=== PATIENT | female | born 1995 | race Caucasian/White ===

== ENCOUNTER 2016-05-21 20:43 | Emergency (ER) | payer OTHER ==
[2016-05-21 20:50] VITALS: RESP 16; TEMP 98.2
[2016-05-21 21:23] LABS: % IMMATURE GRANULYOCYTES 0.3 % (0.0-1.1); ABSOLUTE IMMATURE GRANULOCYTES 0.02 10^3/uL (0.00-0.10); ADD DIFF? NO; ADD MORPH? NO; ADD SCAN? NO; ATYPICAL LYMPHOCYTE FLAG 20 (0-99); FRAGMENT RBC FLAG 0 (0-99); HEMATOCRIT 41.7 % (38.0-47.0); HEMOGLOBIN 14.1 g/dL (12.6-16.3); LEFT SHIFT FLG 0 (0-99); LIPEMIA HEMOLYSIS FLAG 90 (0-99); MEAN CELL HEMOGLOBIN 31.2 pg (27.9-34.1); MEAN CELL HEMOGLOBIN CONCENTR. 33.8 g/dL (32.4-36.7); MEAN CELL VOLUME 92.3 fL (81.5-99.8); MEAN PLATELET VOLUME 11.1 fL (8.7-11.7); PLATELET CLUMPS FLAG 0 (0-99); PLATELET COUNT 312 10^3/uL (150-400); RED BLOOD CELL COUNT 4.52 10^6/uL (4.18-5.33); RED CELL DISTRIBUTION WIDTH 11.5 % (11.5-15.2)
[2016-05-21] MEDS ORDERED: NS 1,000 ML IV ONE (21:38)
--- NOTE | 2016-05-21 21:38 | EDPHY ---
H & P Stated Complaint: LUQ/L flank pain - Personal History LMP (Females 10-55): IUD [address] Place Current Tetanus/Diphtheria Vaccine: Yes Current Tetanus Diphtheria and Acellular Pertussis (TDAP): Yes - Medical/Surgical History Hx Asthma: No Hx Chronic Respiratory Disease: No Hx Diabetes: No Hx Cardiac Disease: No Hx Renal Disease: No Hx Cirrhosis: No Hx Alcoholism: No Hx HIV/AIDS: No Hx Splenectomy or Spleen Trauma: No Other PMH: denies - Social History Smoking Status: Current some day smoker Time Seen by Provider: 05/21/16 21:14 HPI/ROS: CHIEF COMPLAINT: Left upper quadrant, left lower quadrant, left mid quadrant, left flank pain HISTORY OF PRESENT ILLNESS: 20-year-old female presents to the emergency department with reports of pain which began in the left mid quadrant several hours ago. Pain is described as a pressure like discomfort. Radiates around slightly to her back. On arrival to the emergency department patient noticed she is having pain also in the left lower quadrant suprapubic area. Denies any urinary complaints. No hematuria. Has felt like she has some constipation and drink prune juice earlier to try and relieve her discomfort. Had a similar episode of pain which self-resolved several weeks ago. No history of kidney stones. Denies fevers or chills. Denies chest pain. Has had a cold for several weeks but no cough or sputum production. No diarrhea. No headache. REVIEW OF SYSTEMS: Aside from elements discussed in the HPI, a comprehensive 10-point review of systems was reviewed and is negative. PAST MEDICAL HISTORY: Depression SOCIAL HISTORY: Nonsmoker. VITAL SIGNS Reviewed by me. GENERAL: Well-developed, well-nourished, resting comfortably in no respiratory distress. HEENT: Atraumatic. Eyes: No icterus, no injection. Mouth: moist mucous membranes. No erythema or lesions. Neck: supple with no adenopathy. LUNGS: Clear to auscultation bilaterally, no wheezes, rhonchi or rales. CARDIAC: Regular rate and rhythm, no rubs, murmurs or gallops. ABDOMEN: Soft, tenderness in the left mid quadrant, left lower quadrant, and suprapubic region. No guarding or rebound. BACK: Left CVA tenderness. EXTREMITIES: No trauma. No edema. Range of motion is normal throughout. NEURO: Alert and oriented, grossly nonfocal. SKIN: Warm and dry, no rash. PSYCHIATRIC: Normal mentation, no agitation. (Sisi Rojas) Constitutional: Initial Vital Signs Temperature (C) 36.8 C 05/21/16 20:47 Heart Rate 85 05/21/16 20:47 Respiratory Rate 16 05/21/16 20:47 Blood Pressure 135/50 H 05/21/16 20:47 O2 Sat (%) 100 05/21/16 20:47 O2 Delivery Mode Room Air Allergies/Adverse Reactions: No Known Allergies Allergy (Unverified 05/21/16 20:47) Home Medications: Medication Instructions Recorded Wellbutrin Sr 05/21/16 Medical Decision Making - Diagnostics Imaging: Imaging Impressions Abdomen/Pelvis CT 05/21/16 22:07 Impression: 1. Complex 11.6-cm cyst probably of left ovarian or paraovarian origin. With the large size and multiple septations, benign or malignant cystic neoplasm can be considered. 2. Constipation. No CT findings for appendicitis. No evidence for nephrolithiasis or hydronephrosis. Results called and discussed with Sisi Rojas M.D., on May 21, 2016 at 2239 hours. Attention: This CT examination is specifically designed to evaluate patients who are clinically suspected of having acute obstructive uropathy. This examination does not use radiographic contrast, and as such, provides only a limited evaluation of the abdomen, pelvis, and retroperitoneum. If there is further clinical suspicion for pathological conditions other than obstructive uropathy, a complete CT evaluation of the abdomen and pelvis utilizing intravenous, oral, and rectal contrast should be considered. Pelvic/Renal Ultrasound 05/21/16 22:45 Impression: Complex cystic mass in the left adnexal region measuring 11.4 cm with blood flow to the septations. This could represent a cystic ovarian neoplasm, benign or malignant. Results called and discussed with Dr. Damir Ren at 05/21/2016 23:47. ED Course/Re-evaluation: Urinalysis is negative for any acute signs of infection. She does have trace blood in her urine. Patient has a normal white count. She is not . CT scan was ordered to evaluate for intra-abdominal processes including kidney stone. CT scan was reported to me by the radiologist as demonstrating a large left ovarian cyst, quite complex, 11.6 cm. Results were explained to the patient. Ultrasound was ordered to further evaluate the cyst. Patient will need follow up with gynecology teacher. Patient's course was assumed by Dr. Ren at 11:15 p.m. pending ultrasound results. (Sisi Rojas) 1243AM: Patient's ultrasound results reveal 11 cm left ovarian cyst complex in nature no torsion good blood flow. Complex cyst. Will need up with OBGYN outpatient follow-up. Discussed the findings with the patient I gave her ultrasound report she understands follow-up with OBGYN call their make appointment be seen next week. She understands meanwhile she develops severe abdominal pain fever vomiting she needs to immediately return to the emergency room for risk of ovarian torsion given large left ovarian cyst. (Damir Ren ) Differential Diagnosis: After obtaining the patient's history and performing an examination, differential diagnosis considered included but was not limited to kidney stones , urinary tract infections, musculoskeletal causes, Ovarian cyst, pyelonephritis, shingles, and intra-abdominal causes such as diverticulitis and constipation. (Sisi Rojas) - Data Points Laboratory Results: Laboratory Results 05/21/16 21:15 05/21/16 21:15 05/21/16 05/21/16 05/21/16 21:15 21:15 21:15 WBC 7.27 10^3/uL 10^3/uL (3.80-9.50) RBC 4.52 10^6/uL 10^6/uL (4.18-5.33) Hgb 14.1 g/dL g/dL (12.6-16.3) Hct 41.7 % % (38.0-47.0) MCV 92.3 fL fL (81.5-99.8) MCH 31.2 pg pg (27.9-34.1) MCHC 33.8 g/dL g/dL (32.4-36.7) RDW 11.5 % % (11.5-15.2) Plt Count 312 10^3/uL 10^3/uL (150-400) MPV 11.1 fL fL (8.7-11.7) Neut % (Auto) 53.1 % % (39.3-74.2) Lymph % (Auto) 33.8 % % (15.0-45.0) [place] % (Auto) 9.9 % % (4.5-13.0) Eos % (Auto) 2.1 % % (0.6-7.6) Baso % (Auto) 0.8 % % (0.3-1.7) Nucleat RBC Rel Count 0.0 % % (0.0-0.2) Absolute Neuts (auto) 3.86 10^3/uL 10^3/uL (1.70-6.50) Absolute Lymphs (auto) 2.46 10^3/uL 10^3/uL (1.00-3.00) Absolute Monos (auto) 0.72 10^3/uL 10^3/uL (0.30-0.80) Absolute Eos (auto) 0.15 10^3/uL 10^3/uL (0.03-0.40) Absolute Basos (auto) 0.06 10^3/uL 10^3/uL (0.02-0.10) Absolute Nucleated RBC 0.00 10^3/uL 10^3/uL (0-0.01) Immature Gran % 0.3 % % (0.0-1.1) Immature Gran # 0.02 10^3/uL 10^3/uL (0.00-0.10) Sodium 136 mEq/L mEq/L (134-144) Potassium 4.7 mEq/L mEq/L (3.5-5.2) Chloride 105 mEq/L mEq/L (97-110) Carbon Dioxide 20 mEq/l L mEq/l (22-31) Anion Gap 11 mEq/L mEq/L (8-16) BUN 16 mg/dL mg/dL (7-23) Creatinine 0.7 mg/dL mg/dL (0.6-1.0) Estimated GFR > 60 Glucose 93 mg/dL mg/dL (70-100) Calcium 10.1 mg/dL mg/dL (8.5-10.4) Beta HCG, Qual NEGATIVE Urine Color Urine Appearance Urine pH Ur Specific [place] Urine Protein Urine Ketones Urine Blood Urine Nitrate Urine Bilirubin Urine Urobilinogen Ur Leukocyte Esterase Urine RBC Urine WBC Ur Epithelial Cells Urine Glucose 05/21/16 20:50 WBC RBC Hgb Hct MCV MCH MCHC RDW Plt Count MPV Neut % (Auto) Lymph % (Auto) [place] % (Auto) Eos % (Auto) Baso % (Auto) Nucleat RBC Rel Count Absolute Neuts (auto) Absolute Lymphs (auto) Absolute Monos (auto) Absolute Eos (auto) Absolute Basos (auto) Absolute Nucleated RBC Immature Gran % Immature Gran # Sodium Potassium Chloride Carbon Dioxide Anion Gap BUN Creatinine Estimated GFR Glucose Calcium Beta HCG, Qual Urine Color YELLOW Urine Appearance CLEAR Urine pH 6.0 (5.0-7.5) Ur Specific [place]elope 1.019 (1.002-1.030) Urine Protein NEGATIVE (NEGATIVE) Urine Ketones NEGATIVE (NEGATIVE) Urine Blood 1+ H (NEGATIVE) Urine Nitrate NEGATIVE (NEGATIVE) Urine Bilirubin NEGATIVE (NEGATIVE) Urine Urobilinogen NEGATIVE EU EU (0.2-1.0) Ur Leukocyte Esterase NEGATIVE (NEGATIVE) Urine RBC 1-3 /hpf /hpf (0-3) Urine WBC 1-3 /hpf /hpf (0-3) Ur Epithelial Cells TRACE /lpf /lpf (NONE-1+) Urine Glucose NEGATIVE (NEGATIVE) Medications Given: Discontinued Medications Sodium Chloride (Ns) 1,000 mls @ 0 mls/hr IV ONCE ONE PRN Reason: Wide Open Stop: 05/21/16 21:39 Last Admin: 05/21/16 21:42 Dose: 1,000 mls Ketorolac Tromethamine (Toradol) 30 mg IVP EDNOW ONE Stop: 05/21/16 22:07 Last Admin: 05/21/16 22:13 Dose: 30 mg Departure - Departure Disposition: Home, Routine, Self-Care Clinical Impression: Left ovarian cyst Abdominal pain Qualifiers: Abdominal location: left lower quadrant Qualified Code(s): R10.32 - Left lower quadrant pain Condition: Good Instructions: Hydrocodone/Acetaminophen (By mouth), Ovarian Cyst (ED) Additional Instructions: I recommend Ibuprofen (Motrin, Advil) or Naproxen Sodium (Aleve) for pain and anti-inflammatory effects. You may take either one, but do not take both. Your dose is: Ibuprofen 600 mg every 6-8 hours with food. OR Naproxen Sodium (Aleve) 220 mg every 12 hours. You may take [place] if needed for more severe pain. Please follow up with OBGYN as directed. Return to the emergency department or seek care urgently if he develops worsening pain, fevers, vomiting, vaginal bleeding, or other concerns. Referrals: Eleonora Roberts DO [Doctor of Osteopathy] - As per Instructions
[2016-05-21 21:43] LABS: ANION GAP 11 mEq/L (8-16); CALCIUM 10.1 mg/dL (8.5-10.4); CARBON DIOXIDE 20 mEq/l (22-31); CHLORIDE 105 mEq/L (97-110); CREATININE 0.7 mg/dL (0.6-1.0); GLOMERULAR FILTRATION RATE > 60; GLUCOSE 93 mg/dL (70-100); POTASSIUM 4.7 mEq/L (3.5-5.2); SODIUM 136 mEq/L (134-144)
[2016-05-21 21:58] LABS: COLOR YELLOW; LEUKOCYTE ESTERASE,URINE NEGATIVE (NEGATIVE); NITRITE,URINE NEGATIVE (NEGATIVE)
[2016-05-21] MEDS ORDERED: KETOROLAC 30 MG/1 ML SDV IVP ONE (22:06)
[2016-05-21] MEDS ORDERED: HYDROCOD/APAP 5/325 PREPACK#6 BTL TAKEHOME ONE (23:15)
[2016-05-22 00:35] VITALS: BP 110/68; PULSE 76; O2SAT 97
[2016-05-22] MEDS ORDERED: KETOROLAC 30 MG/1 ML SDV ONE (21:49)
== END 2016-05-22 00:51 | disposition home or self-care (01) ==
DX: N83.202 Unspecified ovarian cyst, left side (principal); F17.200 Nicotine dependence, unspecified, uncomplicated
CPT/HCPCS: 96374; J1885

== ENCOUNTER 2016-05-22 13:27 | Observation (INO) | payer OTHER ==
--- NOTE | 2016-05-22 13:46 | EDPHY ---
H & P Stated Complaint: LLQ abd pain Time Seen by Provider: 05/22/16 13:45 HPI/ROS: CHIEF COMPLAINT: Worsening pelvic pain HISTORY OF PRESENT ILLNESS: The patient was seen in the emergency department yesterday diagnosed with a left ovarian mass without torsion. The patient was sent home with pain medications. She presents to the ED for evaluation of worsening pain in the left lower quadrant with associated nausea. The patient took oral narcotic medications prior to arrival without improvement. The patient denies prior history of ovarian cysts. REVIEW OF SYSTEMS: A comprehensive 10 point review of systems is otherwise negative aside from elements mentioned in the history of present illness. Source: Patient - Personal History LMP (Females 10-55): 1-7 Days Ago Current Tetanus/Diphtheria Vaccine: Yes Current Tetanus Diphtheria and Acellular Pertussis (TDAP): Yes - Medical/Surgical History Hx Asthma: No Hx Chronic Respiratory Disease: No Hx Diabetes: No Hx Cardiac Disease: No Hx Renal Disease: No Hx Cirrhosis: No Hx Alcoholism: No Hx HIV/AIDS: No Hx Splenectomy or Spleen Trauma: No Other PMH: denies - Social History Smoking Status: Current some day smoker - Physical Exam Exam: General Appearance: Alert, moderate discomfort Eyes: Pupils equal and round no pallor or injection ENT, Mouth: Mucous membranes moist Respiratory: There are no retractions, lungs are clear to auscultation Cardiovascular: Regular rate and rhythm Gastrointestinal: Tenderness to palpation in the left lower quadrant Neurological: Grossly normal neurologic exam Skin: Warm and dry, no rashes Musculoskeletal: Neck is supple nontender Extremities: symmetrical, full range of motion Constitutional: Initial Vital Signs Temperature (C) 36.9 C 05/22/16 13:34 Heart Rate 93 05/22/16 13:34 Respiratory Rate 14 05/22/16 13:34 Blood Pressure 121/80 H 05/22/16 13:34 O2 Sat (%) 96 05/22/16 13:34 O2 Delivery Mode Room Air Allergies/Adverse Reactions: No Known Allergies Allergy (Unverified 05/22/16 13:34) Home Medications: Medication Instructions Recorded Wellbutrin Sr 05/21/16 Medical Decision Making - Diagnostics Imaging: Imaging Impressions Pelvic/Renal Ultrasound 05/22/16 13:47 Impression: Persistent complex left ovarian cyst. This cyst may be slightly smaller or the change in measurement may be related to difference in position. Results discussed with Junior Addison M.D. ED Course/Re-evaluation: The patient had an IV established. She received 4 mg of morphine. I reviewed the patient's imaging results from yesterday. She is quite tender on exam. Given concerns about acute pelvic torsion a stat ultrasound was ordered. Stat pelvic ultrasound demonstrates normal flow but continues to visualize a large left complex adnexal mass. Re-evaluation of the patient at 3:30 p.m.. Her hematocrit is noted to be stable from yesterday. She continues to have moderate left lower quadrant tenderness however this has improved based upon her initial clinical presentation. Consultation was made with Dr. Kang the on-call OBGYN for ED evaluation given the patient's significant tenderness, multiple ED visits and concern for possible torsion/detorsion pathophysiology. Update at 4:17 p.m.: The patient was evaluated by Dr. Kang who will make arrangements to take the patient to the operating room this evening for cystectomy/oophorectomy. Differential Diagnosis: Differential diagnosis considered includes ovarian cyst, ovarian torsion, PID, ovarian malignancy, tubo-ovarian abscess - Data Points Laboratory Results: Laboratory Results 05/22/16 13:55 05/22/16 13:55 WBC 7.18 10^3/uL 10^3/uL (3.80-9.50) RBC 4.43 10^6/uL 10^6/uL (4.18-5.33) Hgb 14.0 g/dL g/dL (12.6-16.3) Hct 40.8 % % (38.0-47.0) MCV 92.1 fL fL (81.5-99.8) MCH 31.6 pg pg (27.9-34.1) MCHC 34.3 g/dL g/dL (32.4-36.7) RDW 11.3 % L % (11.5-15.2) Plt Count 285 10^3/uL 10^3/uL (150-400) MPV 11.1 fL fL (8.7-11.7) Neut % (Auto) 58.8 % % (39.3-74.2) Lymph % (Auto) 30.1 % % (15.0-45.0) [place] % (Auto) 9.1 % % (4.5-13.0) Eos % (Auto) 1.3 % % (0.6-7.6) Baso % (Auto) 0.4 % % (0.3-1.7) Nucleat RBC Rel Count 0.0 % % (0.0-0.2) Absolute Neuts (auto) 4.23 10^3/uL 10^3/uL (1.70-6.50) Absolute Lymphs (auto) 2.16 10^3/uL 10^3/uL (1.00-3.00) Absolute Monos (auto) 0.65 10^3/uL 10^3/uL (0.30-0.80) Absolute Eos (auto) 0.09 10^3/uL 10^3/uL (0.03-0.40) Absolute Basos (auto) 0.03 10^3/uL 10^3/uL (0.02-0.10) Absolute Nucleated RBC 0.00 10^3/uL 10^3/uL (0-0.01) Immature Gran % 0.3 % % (0.0-1.1) Immature Gran # 0.02 10^3/uL 10^3/uL (0.00-0.10) Medications Given: Discontinued Medications Morphine Sulfate (Morphine) 4 mg IVP EDNOW ONE Stop: 05/22/16 14:07 Last Admin: 05/22/16 14:06 Dose: 4 mg Ondansetron HCl (Zofran) 4 mg IVP EDNOW ONE Stop: 05/22/16 14:06 Last Admin: 05/22/16 14:07 Dose: 4 mg Departure - Departure Disposition: [facility] Clinical Impression: Complex cyst of left ovary, Pelvic pain Condition: Good
[2016-05-22] MEDS ORDERED: ONDANSETRON 4 MG/2 ML VIAL ONE (13:59)
[2016-05-22 14:04] LABS: % IMMATURE GRANULYOCYTES 0.3 % (0.0-1.1); ABSOLUTE IMMATURE GRANULOCYTES 0.02 10^3/uL (0.00-0.10); ADD DIFF? NO; ADD MORPH? NO; ADD SCAN? NO; ATYPICAL LYMPHOCYTE FLAG 20 (0-99); FRAGMENT RBC FLAG 0 (0-99); HEMATOCRIT 40.8 % (38.0-47.0); LEFT SHIFT FLG 0 (0-99); LIPEMIA HEMOLYSIS FLAG 90 (0-99); MEAN CELL HEMOGLOBIN 31.6 pg (27.9-34.1); MEAN CELL HEMOGLOBIN CONCENTR. 34.3 g/dL (32.4-36.7); MEAN CELL VOLUME 92.1 fL (81.5-99.8); MEAN PLATELET VOLUME 11.1 fL (8.7-11.7); PLATELET CLUMPS FLAG 10 (0-99); PLATELET COUNT 285 10^3/uL (150-400); RED BLOOD CELL COUNT 4.43 10^6/uL (4.18-5.33); RED CELL DISTRIBUTION WIDTH 11.3 % (11.5-15.2)
[2016-05-22] MEDS ORDERED: ONDANSETRON 4 MG/2 ML VIAL IVP ONE (14:05)
--- NOTE | 2016-05-22 16:21 | PDCONSULT ---
Pmp Note: Consult request: Dr. Junior Denis HPI: Left lower abdominal pain Patient is a healthy 20 yo G0 with LLQ and enlarged complex left ovarian mass. She states she first noticed some lower abdominal pain a few months ago, it was mild and lasted for about a week and then resolved. Then last week on spring while home with her family in [place] she noticed the discomfort again. She did not seek medical care for either of these episodes. Then yesterday she had severe LLQ pain, so much so that she was crying in pain, 10/10 discomfort. She came to the ED and was diagnosed with the ovarian mass. She felt better after IV fluids and pain medicine and was discharged. However, the pain recurred and was even more severe today so she returned to the ED. She said it was the worst pain of her life. She is still is discomfort today but it is better now with pain medication. 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 G0 Meds: Wellbutrin All: NKDA Social: No Tob/Etoh/Drug VS reviewed, WNL Gen: alert, awake, NAD, AOx4 Resp: unlabored CV: RRR Abd: soft, TTP throughout lower abdomen L>R, able to palpate mobile mass in left , no rebound/guarding Pelvic: Deferred Ext: no edema Hct = 40 Pelvic US: Findings: the complex, multiseptated left ovarian cyst measures 8.6 x 6.4 x 10.6 cm compared to recent 11.4 x 8.7 x 10.3 cm. Both arterial and venous blood flow is detected within the choi of this cyst. An IUD remains in place within the uterus. The right ovary is stable and unremarkable. There is a tiny amount of free fluid. A/P: Acute lower abdominal pain, abnormal complex enlarged ovarian mass. Recommend surgical removal given the appearance on US and her level of discomfort. Discussed recommendation for mini-laparotomy and LSO. Will consider cystectomy depending on intra-operative findings, however the complex appearance is worrisome for potential malignancy which is why I recommend oophorectomy. She agrees with plan. We discussed implications of having one ovary. Discussed with her (and her mother via phone) the risks/benefits of surgery. Reviewed she could fly home to have surgery in [place] with her family if preferred as she is clinically stable, but she states her pain is so severe she prefers to have surgery [place]. Her mother is flying here tonight. Reviewed risks/benefits including pain, infection, bleeding, transfusion, injury to other organs, need for additional procedures. She agrees to proceed. Surgical consents signed. NPO since 11 am (had an orange), will defer surgery time to anesthesia No antibiotics indicated Will plan overnight admission and likely home on POD#1 Joyce Kang MD [employer] Screen Watcher [facility]
[2016-05-22] MEDS ORDERED: SURGIFLO MATRIX KIT WITH THROMBIN TP ONE (16:29)
[2016-05-22] MEDS ORDERED: LIDOCAINE 2% 5 ML SDV ONE (19:52)
[2016-05-22] MEDS ORDERED: ROCURONIUM 50 MG/5 ML VIAL ONE (19:52)
[2016-05-22] MEDS ORDERED: fentaNYL 100 MCG/2 ML INJ ONE ×3 (19:54→21:26)
[2016-05-22] MEDS ORDERED: PROPOFOL 200 MG/20 ML VIAL ONE (19:54)
[2016-05-22] MEDS ORDERED: MIDAZOLAM 2 MG/2 ML VIAL ONE (19:56)
[2016-05-22] MEDS ORDERED: SKIN ADHESIVE (DERMABOND) 1 EACH TP ONE (19:57)
[2016-05-22] MEDS ORDERED: NEOSTIGMINE METHYLSULFATE 5 MG/5 ML SYR ONE (21:08)
[2016-05-22] MEDS ORDERED: GLYCOPYRROLATE 0.2 MG/1 ML VIAL ONE (21:08)
[2016-05-22] MEDS ORDERED: ONDANSETRON 4 MG/2 ML VIAL IVP PRN (21:43)
[2016-05-22] MEDS ORDERED: HYDROCODONE/APAP 5/325 TAB PO PRN (21:43)
[2016-05-22] MEDS ORDERED: KETOROLAC 30 MG/1 ML SDV IVP ONE (21:43)
[2016-05-22] MEDS ORDERED: LR 1,000 ML IV SCH (22:00)
--- NOTE | 2016-05-23 04:58 | GOP ---
[f rep st] OPERATIVE REPORT DATE OF OPERATION: 05/22/2016 SURGEON: Joyce Kang MD OLIVE GRADER: Erlinda Mora AUTOMOTIVE SALES REPRESENTATIVE. ANESTHESIA: General with ET tube. ANESTHESIOLOGIST: Thong Fried MD PREOPERATIVE DIAGNOSIS: A 10 cm complex left ovarian mass. POSTOPERATIVE DIAGNOSIS: A 10 cm complex left ovarian mass. Ovarian torsion. PROCEDURE PERFORMED: Laparotomy via Pfannenstiel incision. Left salpingo- oophorectomy. FINDINGS: Enlarged abnormal-appearing left ovary noted to have multicystic lobules. There was no evidence of normal ovarian tissue. The uterus was normal and the right tube and ovary were noted to be normal. The remainder of the abdomen was normal. SPECIMENS: Left ovary and fallopian tube. ESTIMATED BLOOD LOSS: Minimal. COMPLICATIONS: None INDICATIONS: The patient is a 20-year-old, G0, who presented to the emergency room yesterday with new-onset left lower quadrant pain. Imaging was done demonstrating a 10 cm complex left ovarian mass, but she was clinically stable and was discharged home. However, upon returning home she had worsening pain and came back to the emergency room. Gynecology was consulted after this presentation. Given the fact that she was in significant distress, it was recommended to proceed to the operating room for surgical management. As the ovary was abnormal appearing and complex with multicystic components on the ultrasound, it was recommended to proceed with an oophorectomy instead of cystectomy as we could not rule out a malignancy. She agreed with the plan. She declined to wait for surgery with a mud analysis well logging operator oncologist due to her level of discomfort, and was aware of the possible need for a subsequent surgery if a malignancy was found. We discussed the risks of pain, infection, bleeding, transfusion, injury to other organs. DESCRIPTION OF PROCEDURE: The patient was taken to the operating room and a time-out was performed. She was prepped and draped after induction of general anesthetic with ET tube. She was in supine position. A Silva catheter was placed. A 10 cm Pfannenstiel incision was made with a scalpel and carried down to the fascia. The fascia was incised with the scalpel and then extended laterally sharply. The fascia was dissected off the rectus muscles superiorly and inferiorly. The peritoneum was entered sharply and then stretched. A medium Toby retractor was placed. The left ovary was delivered intact. It was noted to be twisted 2 times around its pedicle and was untwisted. A window was made in the left broad ligament. The uteroovarian ligament was doubly clamped and then transected. A free tie followed by a transfixing suture was placed on the proximal ligament. The infundibulopelvic ligament was then doubly clamped and transected, and the pedicle was secured with a free tie followed by a transfixing suture. The specimen was taken off the field intact, and no spillage was noted. Hemostasis was noted at this time. The fascia was then closed starting from either apex and crossing in the center with a running stitch of 0 Vicryl. Irrigation was performed of the subcutaneous spaces and hemostasis was assured. The subcutaneous space was closed with 2-0 Vicryl and the skin was closed with 4-0 Monocryl and a dressing was placed. The patient was awakened in stable condition and was brought to the recovery room. Counts were correct x2. senior underwriting assistant was medically necessary for this procedure. /[id number]/MODL MTDD
[2016-05-23 05:05] LABS: HEMATOCRIT 36.9 % (38.0-47.0); HEMOGLOBIN 12.1 g/dL (12.6-16.3)
[2016-05-23] MEDS: IBUPROFEN 600 MG TAB PO PRN ×2 (08:12→15:45)
[2016-05-23 08:21] VITALS: BP 89/53; PULSE 62; RESP 16; TEMP 98.1; O2SAT 2
--- NOTE | 2016-05-23 09:30 | SOAPPROG ---
SOAP Progress Note Assessment/Plan: Assessment: POD#1 s/p open LSO for 10 cm ovarian mass Recovering well overall, but pain control inadequate H/H appropriate BP had been trending down, just repeated and systolic is now 105 Plan: Trial percocet, D/C norco as was not helpful for her Routine postop care Reevaluate for discharge later today versus tomorrow 05/23/16 09:31 05/23/16 09:32 Subjective: Slept well. Pain control is only OK, had norco and ibuprofen but still is a 6/ 10. No vaginal bleeding. No chest pain or shortness of breath. Did ambulate to the bathroom and was able to pee but she had abdominal pain. Did have a full breakfast with no nausea Objective: Vital Signs Temp Pulse Resp BP Pulse Ox 36.7 C 62 16 89/53 L 2 L 05/23/16 08:15 05/23/16 08:15 05/23/16 08:15 05/23/16 08:15 05/23/16 08:15 Laboratory Results 05/23/16 04:33 05/22/16 05/23/16 05/24/16 05:59 05:59 05:59 Intake Total 1520 700 Output Total 420 Balance 1100 700 Gen: NAD, alert, awake Resp: unlabored CV: reg rate Abd: soft, nondistended, appropriately tender Incision: steri strips, small staining Ext: no edema ICD10 Worksheet Patient Problems: Problems Problem Status Onset Complex cyst of left ovary Acute Pelvic pain Acute
[2016-05-23] MEDS: OXYCODONE/APAP 5/325 TAB PO PRN ×2 (09:36→13:44)
--- NOTE | 2016-05-23 16:08 | GDS ---
[f rep st] DISCHARGE SUMMARY ADMISSION DIAGNOSIS: Complex left ovarian mass with acute onset abdominal pain. DISCHARGE DIAGNOSIS: Complex left ovarian mass with acute onset abdominal pain , status post open left salpingo-oophorectomy. CONSULTS: Anesthesia. COMPLICATIONS: None. PROCEDURES PERFORMED: Left salpingo-oophorectomy. HOSPITAL COURSE: The patient is a 20-year-old, G0, who presented to the emergency room with acute lower abdominal pain. Imaging was done that demonstrated a 10-11 cm complex left ovarian mass. She was taken to the operating room, and a Pfannenstiel incision was performed followed by a left salpingo-oophorectomy. The surgery was uncomplicated and her EBL was minimal. She was observed overnight in the hospital. Her vital signs were stable, her urine output was adequate, and her post-operative Hgb was appropriate at 12. On postoperative day #1, she was meeting all milestones including tolerating a regular diet, ambulating, voiding spontaneously, passing flatus, and her pain was controlled with oral medications, which were ibuprofen and Percocet. She desired discharge home where she will be cared for by her mom and her brother. She will follow up in the office with me in 1 week. DISCHARGE MEDICATIONS: Percocet 5/325 mg, ibuprofen 600 mg, MiraLAX 17 g, Colace 100 mg. DISCHARGE INSTRUCTIONS: Pelvic rest for 2 weeks. No driving for 2 weeks. No soaking in a tub, pool, or Jacuzzi, and she was given instructions to call with any worsening pain, fevers, chills, bleeding, or other concerns. Total time of discharge 40 minutes. /[id number]/MODL MTDD
== END 2016-05-23 17:23 | disposition home or self-care (01) ==
LOC: F1N 22:13
PROVIDERS: ADMIT Obstetrics & Gynecology; ATTEND Obstetrics & Gynecology
PROC: 0UT60ZZ Resection of Left Fallopian Tube, Open Approach (ICD-10-PCS; principal; 2016-05-22 20:01)
PROC: 0UT10ZZ Resection of Left Ovary, Open Approach (ICD-10-PCS; principal; 2016-05-22 20:01)
DX: N83.202 Unspecified ovarian cyst, left side (principal)
CPT/HCPCS: 58720; 76856; G0378; 96374; J2250; J2405; J2704; J2710; J3010

== ENCOUNTER → 2016-05-24 | Outpatient (CLI) | payer OTHER | LOC: FIMAGING 15:40 | PROVIDERS: ATTEND Midwife | DX: L76.32 Postprocedural hematoma of skin and subcutaneous tissue following other procedure (principal) ==